=== PATIENT | male | born 1945 | race Asian ===

== ENCOUNTER 2017-04-21 06:59 | Day surgery (SDC) | payer BC ==
[2017-04-20 14:08] VITALS: BMI 26.7
[2017-04-21] MEDS ORDERED: LIDOCAINE HCL 2% (20ML MULTI-DOSE VIAL) NR ONE (07:57)
[2017-04-21] MEDS ORDERED: PROPOFOL 20 ML ONE ×2 (07:57)
[2017-04-21 08:32] VITALS: TEMP 97.5
[2017-04-21 11:19] VITALS: BP 116/76; PULSE 62
--- NOTE | 2017-04-22 13:33 | PATH ---
Surgical Pathology Report Patient Name: LEIGHTON BARNES [facility]. Rec. #: [id number] /Age/Gender: 1945 (Age: 72) / M Account: [id number] Location: U-ENDOSCOPY Taken: 04/21/2017 Received: 04/21/2017 Reported: 04/22/2017 Physicians: Kody Young M.D. Specimen(s) Received BX CECAL POLYP Clinical History Polyp surveillance Polyp Final Diagnosis CECUM, POLYP, BIOPSY: TUBULAR ADENOMA. Electronically Signed Sabra Ley M.D. Gross Description Received in formalin, labeled "biopsy cecal polyp" are 4 mcmahon, irregular portions of soft tissue averaging 0.2 cm. in greatest dimension. The specimens are submitted in toto in one cassette. 04/21/201704/21/2017
== END 2017-04-21 09:40 | disposition home or self-care (01) ==
LOC: JASU-ENDO 06:59
PROVIDERS: ATTEND Internal Medicine Gastroenterology
PROC: 0DBH8ZX Excision of Cecum, Via Natural or Artificial Opening Endoscopic, Diagnostic (ICD-10-PCS; principal; 2017-04-21 08:00)
DX: Z86.010 Personal history of colon polyps (principal); D12.0 Benign neoplasm of cecum; K57.30 Diverticulosis of large intestine without perforation or abscess without bleeding; I10 Essential (primary) hypertension; I25.10 Atherosclerotic heart disease of native coronary artery without angina pectoris; E78.5 Hyperlipidemia, unspecified; Z85.118 Personal history of other malignant neoplasm of bronchus and lung; Z95.5 Presence of coronary angioplasty implant and graft; Z90.2 Acquired absence of lung [part of]
CPT/HCPCS: 88305-TC

== ENCOUNTER 2022-04-17 04:42 | Day surgery (SDC) | payer BC ==
[2022-04-16 09:55] VITALS: BMI 26.6
[2022-04-17 11:37] VITALS: TEMP 98
[2022-04-17 12:17] VITALS: BP 103/60; PULSE 66; RESP 18
== END 2022-04-17 12:25 | disposition home or self-care (01) ==
LOC: JASU-ENDO 04:42
PROVIDERS: ATTEND Internal Medicine Gastroenterology
PROC: 0DBH8ZX Excision of Cecum, Via Natural or Artificial Opening Endoscopic, Diagnostic (ICD-10-PCS; principal; 2022-04-17 12:00)
DX: Z12.11 Encounter for screening for malignant neoplasm of colon (principal); K63.5 Polyp of colon; K57.30 Diverticulosis of large intestine without perforation or abscess without bleeding; Z86.010 Personal history of colon polyps
CPT/HCPCS: 88305-TC

== ENCOUNTER 2023-12-28 04:29 | Day surgery (SDC) | payer BC ==
[2023-12-23 12:00] VITALS: BMI 25.0
[2023-12-28] MEDS ORDERED: KETAMINE HCL 200 MG/20 ML VIAL ONE (07:21)
[2023-12-28] MEDS ORDERED: LIDOCAINE VISCOUS 2% ORAL/TOP 15 ML UNIT-DOSE CUP ONE (07:21)
[2023-12-28 08:50] VITALS: TEMP 98.4
[2023-12-28 09:34] VITALS: PULSE 64
[2023-12-28 09:36] VITALS: BP 146/70; RESP 17
== END 2023-12-28 10:00 | disposition home or self-care (01) ==
LOC: JASU-ENDO 04:29
PROVIDERS: ATTEND Internal Medicine Gastroenterology
PROC: 0DB98ZX Excision of Duodenum, Via Natural or Artificial Opening Endoscopic, Diagnostic (ICD-10-PCS; 2023-12-28)
PROC: 0DB68ZX Excision of Stomach, Via Natural or Artificial Opening Endoscopic, Diagnostic (ICD-10-PCS; 2023-12-28)
PROC: 0DBP8ZX Excision of Rectum, Via Natural or Artificial Opening Endoscopic, Diagnostic (ICD-10-PCS; principal; 2023-12-28 08:00)
DX: Z12.11 Encounter for screening for malignant neoplasm of colon (principal); D12.8 Benign neoplasm of rectum; K57.30 Diverticulosis of large intestine without perforation or abscess without bleeding; K64.8 Other hemorrhoids; Z86.010 Personal history of colon polyps; K29.50 Unspecified chronic gastritis without bleeding; K25.9 Gastric ulcer, unspecified as acute or chronic, without hemorrhage or perforation; D64.9 Anemia, unspecified; R19.5 Other fecal abnormalities
CPT/HCPCS: 88305-TC; 88342-TC